=== PATIENT | male | born 1985 | race African-American/Black ===

== ENCOUNTER 2021-12-29 20:37 | Emergency (ER) | payer BC ==
[~2021-12-29] VITALS: Ht 185.4 cm; Wt 98.0 kg
[2021-12-29] MEDS ORDERED: SODIUM CHLORIDE 0.9% 1000ML 1,000 ML IV STA ×2 (21:06→22:24)
[2021-12-29] MEDS ORDERED: IBUPROFEN 600 MG TAB PO STA (21:25)
[2021-12-29] MEDS ORDERED: ONDANSETRON HCL INJ 2MG/ML 2ML 2 MG/ML VIAL IV STA (21:26)
[2021-12-29] MEDS ORDERED: Morphine 4mg INJECTION 4 MG/ML INJ IV STA (21:26)
[2021-12-29] MEDS ORDERED: ACETAMINOPHEN 325 MG TAB PO STA (21:26)
[2021-12-29 21:39] LABS: BASOPHILS % 0.3 % (0.0-1.0); HEMATOCRIT 39.8 % (38.2-49.6); HEMOGLOBIN 13.9 g/dL (14.0-18.0); LYMPHOCYTES # (AUTO) 0.5 (1.0-3.2); LYMPHOCYTES % 8.8 % (18.0-39.1); MEAN CORPUSCULAR HEMOGLOBIN 33.5 pg (28-32); MEAN CORPUSCULAR HGB CONC 34.9 g/dL (31-35); MEAN CORPUSCULAR VOLUME 95.9 fL (81-99); MONOCYTES % 0.7 % (4.4-11.3); NEUTROPHILS # (AUTO) 5.3 (2.1-6.9); PLATELET COUNT 173 x10e3/uL (140-360); RED BLOOD COUNT 4.15 x10e6/uL (4.3-5.7); RED CELL DISTRIBUTION WIDTH 13.6 % (11.7-14.4)
[2021-12-29 22:00] LABS: ANION GAP 17.5 mmol/L (8-16); CALCIUM 8.9 mg/dL (8.4-10.2); CREATININE, SERUM 1.21 mg/dL (0.72-1.25); POTASSIUM 3.5 mmol/L (3.5-5.1)
[2021-12-29 22:05] LABS: CLARITY,URINE SL CLOUDY (CLEAR); COLOR,URINE YELLOW (YELLOW); KETONES,URINE 1+ (NEGATIVE); LEUKOCYTE ESTERASE ,URINE NEGATIVE (NEGATIVE); NITRITE,URINE NEGATIVE (NEGATIVE); PROTEIN,URINE DIPSTICK 1+ (NEGATIVE); URINE UROBILINOGEN 0.2 mg/dL (0.2 - 1)
[2021-12-29 22:14] LABS: MUCUS,URINE MODERATE (RARE)
[2021-12-29 22:31] LABS: CREATINE KINASE 491 IU/L (30-200)
[2021-12-29] MEDS ORDERED: IOPAMIDOL 370 MG/ML 100 ML INFUS..BTL INJ ONE (23:03)
[2021-12-30] MEDS ORDERED: CEPHALEXIN500 MG PO (01:05)
[2021-12-30 01:40] LABS: ALBUMIN 4.1 g/dL (3.5-5.0); ALBUMIN/GLOBULIN RATIO 1.2 (0.8-2.0)
[2021-12-30 11:05] LABS: BAND NEUTROPHILS % (MANUAL) 3 %; LYMPHOCYTES % (MANUAL) 12 % (19-48); MONOCYTES % (MANUAL) 3 % (3.4-9.0); NEUTROPHILS % (MANUAL) 82 % (40-74); NUCLEATED RED BLOOD CELLS 1; PLATELET ESTIMATE ADEQUATE; PLATELET MORPHOLOGY COMMENT NORMAL; RBC MORPHOLOGY COMMENT NORMAL
== END 2021-12-30 01:33 | disposition home or self-care (01) ==
LOC: ER 20:40
DX: A41.9 Sepsis, unspecified organism (principal); S39.011A Strain of muscle, fascia and tendon of abdomen, initial encounter; Y93.79 Activity, other specified sports and athletics; Z20.822 Contact with and (suspected) exposure to COVID-19
CPT/HCPCS: 36415; 71260; 74177; 80053; 81001; 82550; 82553; 83605; 84484; 85025; 87040; 87071; 87186; 87205; 93005; 99284; J2270; J2405; J2543; Q9967; U0002

== ENCOUNTER 2022-01-07 02:51 | Emergency (ER) | payer BC, OTHER ==
[~2022-01-07] VITALS: Ht 185.4 cm; Wt 98.0 kg
[~2022-01-07 02:51] MED LIST: CEPHALEXIN500 MG PO
[2022-01-07] MEDS ORDERED: KETOROLAC TROMETHAMINE 60 MG/2 ML VIAL IM ONE (03:30)
[2022-01-07] MEDS ORDERED: KETOROLAC TROMETHAMINE 60 MG/2 ML VIAL ONE (03:32)
== END 2022-01-07 03:28 | disposition home or self-care (01) ==
LOC: ER 03:00
DX: S39.011A Strain of muscle, fascia and tendon of abdomen, initial encounter (principal); Y93.B9 Activity, other involving muscle strengthening exercises
CPT/HCPCS: 99283; J1885